=== PATIENT | male | born 1980 | race Caucasian/White ===

== ENCOUNTER → 2018-02-27 | Outpatient (CLI) | payer BC ==
--- NOTE | 2018-02-27 16:02 | KCIC ---
Examination: Ultrasound left mid biceps region HISTORY: History of lump in the mid biceps region COMPARISON: None available Findings/ impression: There is a 3.1 x 1.0 x 2.1 cm hyperechoic nonvascular elliptical lesion identified in the region of the lump in the region of the mid biceps could be a lipoma or tendon pathology. Nerve sheath tumor is not completely excluded. Recommend MRI without and with IV contrast for further evaluation. Electronically signed by: Donavon Berg MD (02/27/2018 3:58 PM) [place] [id number]
== END | disposition home or self-care (01) ==
LOC: KCIC US 15:20
PROVIDERS: ATTEND Nurse Practitioner Family
DX: R22.32 Localized swelling, mass and lump, left upper limb (principal)
CPT/HCPCS: 76881

== ENCOUNTER → 2018-03-05 | Outpatient (CLI) | payer BC ==
[~2018-03-05] MED LIST: GADOBUTROL 10 MMOL/10 ML VIAL IV ONE
--- NOTE | 2018-03-05 17:02 | KCIC ---
MR of the left humerus with and without contrast HISTORY: Soft tissue mass at the anterior mid biceps, noticed one month ago. TECHNIQUE: Marked placed at the area of concern. Routine multiplanar sequences obtained before and after intravenous gadolinium. FINDINGS: Soft tissue mass within the anterolateral biceps muscle, measures 19 mm x 9 mm x 30 mm. Consists of homogeneous fatty signal without significant cellularity or enhancement, compatible with a benign lipoma. No soft tissue edema or other lesion is identified. Muscle tissue is intact. Visualized humerus demonstrates no edema, lesion or acute fracture. IMPRESSION: Lesion compatible with a benign lipoma within the anterolateral biceps muscle. Electronically signed by: Shankar Valdez MD (03/05/2018 4:59 PM) [facility]
== END | disposition home or self-care (01) ==
LOC: KCIC MRI 15:25
PROVIDERS: ATTEND Nurse Practitioner Family
DX: M79.89 Other specified soft tissue disorders (principal)
CPT/HCPCS: 73220; A9585

== ENCOUNTER → 2018-04-04 | Day surgery (SDC) | payer BC ==
[~2018-04-04] MED LIST changes: -GADOBUTROL 10 MMOL/10 ML VIAL IV ONE; +LIDOCAINE 1%/EPI 1:100,000 20 ML VIAL. INJ ONE
[2018-04-04 09:45] VITALS: BP 131/79
--- NOTE | 2018-04-04 10:32 | DISCH ---
DISCHARGE INSTRUCTIONS Condition on Discharge Condition on Discharge: Stable Activity After Discharge Activity Instructions for Disc: Activity as tolerated Diet after Discharge Diet after Discharge: Regular Wound Incision Care Other wound/incision instructi: May shower in 24 hours Contacting the [facility] after DC Call your doctor for: If your condition worsens Follow-Up Follow up with: Dr. Sadler in 2 weeks WANDA SADLER MD Apr 04, 2018 10:32
--- NOTE | 2018-04-04 10:32 | PDOC4 ---
Operative Note Operative Note Date: 04/04/2018 Preoperative diagnosis: Left upper extremity mass Postoperative diagnosis: Same Procedure: Excision of left upper extremity mass Surgeon: Chaz Specimen: Left upper extremity mass Dictation: Patient is a 38-year-old male complained of a mass in the upper arm on the left side which is getting larger and sometimes is painful procedure of excision of mass was explained to the patient details benefits are also discussed including bleeding infection alternatives to this procedure also discussed the patient is seemed understandable verbal and written consent to have the procedure performed. Patient was taken to the minor was room placed in the supine position his left upper arm was prepped and draped usual sterile fashion using ChloraPrep. Over the mass was injected with quarter percent Marcaine with epinephrine incision made with 15 blade scalpel was carried down through subcutaneous tissue using Metzenbaum scissors down to the mass which was actually intramuscular this was removed in total and sent for pathology. The wound was closed in 2 layers a deep layer running 3-0 Vicryl and the skin was approximate for septic and Monocryl Mastisol Steri-Strips and nylon dressing were applied. He was discharged home in stable condition all sponge instrument needle counts listed as correct estimated blood loss 5 mL WANDA SADLER MD Apr 04, 2018 10:32
--- NOTE | 2018-04-08 09:09 | PATHOLOGY ---
[facility] Accession Number: [id number] . 01 Material submitted: . LEFT UPPER ARM MASS . 01 Clinical history: . None provided . 02 Diagnosis: Segment of fibroadipose and skeletal muscle tissue, left upper arm mass: - Lipoma, in part intramuscular. (JPM:luana; 04/07/2018) QMS/04/07/2018 . 02 Comment: Microscopic sections of the left upper arm mass reveal a lipoma which is in part intramuscular. There is no evidence of malignancy. (JPM:luana; 04/07/2018) . 02 Electronically signed: . Tanner Sandoval MD, Pathologist NPI- [id number] . 01 Gross description: . The specimen is received in formalin, labeled "Lucas Mark, left upper arm mass". Received is a well-circumscribed segment of bright yellow lobulated tissue with attached red-brown muscle measuring 2.7 x 2.4 x 1.4 cm in greatest dimensions. Sectioning reveals bright yellow, lobulated cut surfaces throughout with no grossly distinct nodules or lesions. The specimen is submitted representatively in cassette A1. (CAA; 04/06/2018) QAC/QAC . 02 Pathologist provided ICD-10: D17.79 . 02 CPT . 368824 Specimen Comment: A courtesy copy of this report has been sent to Specimen Comment: [phone]. Specimen Comment: Report sent to / DR GARCIA Specimen Comment: A duplicate report has been generated due to demographic updates. Performed at: 01 [facility] [address], [place], [place] [id number] MD Kasi Calvo MD Phone: [phone] Performed at: 02 [facility] [address] [place], [place] [id number] MD Tanner Sandoval MD Phone: [phone]
== END | disposition home or self-care (01) ==
LOC: SURG 08:53
PROVIDERS: ATTEND Surgery
DX: D17.22 Benign lipomatous neoplasm of skin and subcutaneous tissue of left arm (principal); Z79.899 Other long term (current) drug therapy; Z98.890 Other specified postprocedural states
CPT/HCPCS: 24076; 88304; J3490